=== PATIENT | male | born 1975 | race Caucasian/White ===

== ENCOUNTER 2021-11-16 14:59 | Emergency (ER) | payer OTHER ==
[2021-11-16 15:20] VITALS: BP 152/98; PULSE 105; TEMP 97.5; BMI 39.5
== END 2021-11-16 15:34 | disposition home or self-care (01) ==
LOC: JERFT 14:59 → JER 14:59 → JERFT 15:34
DX: Z71.1 Person with feared health complaint in whom no diagnosis is made (principal)
CPT/HCPCS: 99282-25

== ENCOUNTER 2022-04-06 21:16 | Emergency (ER) | payer OTHER ==
[2022-04-06 21:22] VITALS: BP 151/102; PULSE 73; RESP 18; TEMP 98.2; BMI 33.0
== END 2022-04-06 22:52 | disposition home or self-care (01) ==
LOC: FER 21:16
DX: S93.602A Unspecified sprain of left foot, initial encounter (principal); X50.0XXA Overexertion from strenuous movement or load, initial encounter
CPT/HCPCS: 73630-TC-LT; 99283-25